=== PATIENT | male | born 1975 | race Caucasian/White ===

== ENCOUNTER 2020-02-11 10:07 | Outpatient (CLI) | payer OTHER | END 2020-02-11 10:16 | disposition home or self-care (01) | LOC: RAD 10:07 | PROVIDERS: ATTEND Orthopaedic Surgery | DX: M25.572 Pain in left ankle and joints of left foot (principal); M79.672 Pain in left foot ==

== ENCOUNTER 2020-03-31 07:50 | Outpatient (CLI) | payer OTHER | END 2020-03-31 07:54 | disposition home or self-care (01) | LOC: LAB 07:50 | PROVIDERS: ATTEND Orthopaedic Surgery | DX: E56.1 Deficiency of vitamin K (principal); M85.88 Other specified disorders of bone density and structure, other site; E55.9 Vitamin D deficiency, unspecified ==